=== PATIENT | male | born 1980 | race Caucasian/White ===

== ENCOUNTER 2019-06-11 08:38 | Emergency (ER) | payer MEDICAID ==
[~2019-06-11] VITALS: Ht 177.8 cm; Wt 86.2 kg
[2019-06-11 08:50] VITALS: BP 141/86
== END 2019-06-11 10:41 | disposition home or self-care (01) ==
LOC: ER 08:40
DX: M79.672 Pain in left foot (principal)
CPT/HCPCS: 73630

== ENCOUNTER 2021-07-10 19:13 | Emergency (ER) | payer MEDICAID ==
[~2021-07-10] VITALS: Ht 177.8 cm; Wt 86.2 kg
[2021-07-10] MEDS ORDERED: KETOROLAC TROMETH 30 MG/ML 1ML VIAL IM ONE (22:45)
[2021-07-10] MEDS ORDERED: IBUP800T27 PO (23:08)
[2021-07-10] MEDS ORDERED: METH500T22 PO (23:08)
[2021-07-11 00:11] VITALS: BP 105/74
== END 2021-07-11 01:47 | disposition home or self-care (01) ==
LOC: ER 19:13
DX: S46.911A Strain of unspecified muscle, fascia and tendon at shoulder and upper arm level, right arm, initial encounter (principal); S86.911A Strain of unspecified muscle(s) and tendon(s) at lower leg level, right leg, initial encounter; S86.912A Strain of unspecified muscle(s) and tendon(s) at lower leg level, left leg, initial encounter; S56.312A Strain of extensor or abductor muscles, fascia and tendons of left thumb at forearm level, initial encounter; Z79.1 Long term (current) use of non-steroidal anti-inflammatories (NSAID); Z79.899 Other long term (current) drug therapy; V00.318A Other snowboard accident, initial encounter; X58.XXXA Exposure to other specified factors, initial encounter; Y93.89 Activity, other specified; Y92.89 Other specified places as the place of occurrence of the external cause; Y99.8 Other external cause status
CPT/HCPCS: 73070; 73140; 73560; 96372; 99284; J1885